=== PATIENT | male | born 1995 | race Caucasian/White ===

== ENCOUNTER 2021-08-06 07:14 | Emergency (ER) | payer MEDICAID, OTHER ==
[~2021-08-06] VITALS: Ht 167.6 cm; Wt 109.1 kg
[2021-08-06 07:18] VITALS: BP 122/77
[2021-08-06] MEDS ORDERED: ketorolac trometh inj. 60 MG/2 ML VIAL IM ONE (08:05)
[2021-08-06] MEDS ORDERED: orphenadrine citrate 60mg/2ml inj. IM ONE (08:05)
[2021-08-06] MEDS ORDERED: CYCL-1 PO (08:05)
[2021-08-06] MEDS ORDERED: acetaminophen 325mg tablet PO ONE (08:05)
[2021-08-06] MEDS ORDERED: ACET-1025 PO (08:05)
== END 2021-08-06 08:42 | disposition home or self-care (01) ==
LOC: ER 07:14
DX: M54.50 Low back pain, unspecified (principal); Z79.899 Other long term (current) drug therapy
CPT/HCPCS: 96372; 99284; J1885; J2360